=== PATIENT | female | born 1995 | race Caucasian/White ===

== ENCOUNTER 2016-11-30 13:06 | Emergency (ER) | payer OTHER ==
[2016-11-30 13:38] VITALS: BP 140/76
[2016-11-30] MEDS ORDERED: Ibuprofen TAB* 600 MG PO ONE (13:39)
--- NOTE | 2016-11-30 13:50 | UC ---
Throat Pain/Nasal Khai HPI - HPI Summary HPI Summary: sore throat x 4 days , chest congestion , cough , sinus pressure , pnd, fever and chills - History of Current Complaint Chief Complaint: UCRespiratory Stated Complaint: SINUS,COUGH Time Seen by Provider: 11/30/16 13:38 Hx Obtained From: Patient Hx Last Menstrual Period: 11/02/16 Onset/Duration: Gradual Onset, Lasting Days - 4, Still Present Severity: Moderate Cough: Nonproductive Associated Signs & Symptoms: Positive: Sinus Discomfort, Nasal Discharge, Fever. Negative: Rash - Allergies/Home Medications Allergies/Adverse Reactions: Allergies Allergy/AdvReac Type Severity Reaction Status Date / Time No Known Allergies Allergy Verified 11/30/16 13:32 Home Medications: Home Medications Ibuprofen TAB* [Advil TAB*] 400 mg PO Q6H PRN 11/30/16 [History Confirmed ] PMH/Surg Hx/FS Hx/Imm Hx Previously Healthy: Yes - Surgical History Surgical History: None - Family History Known Family History: Negative: Diabetes - Social History Alcohol Use: None Substance Use Type: None Smoking Status (MU): Never Smoked Tobacco - Immunization History Most Recent Influenza Vaccination: 2016 Review of Systems Constitutional: Fever, Chills, Fatigue Skin: Negative Eyes: Negative ENT: Sore Throat, Nasal Discharge Respiratory: Cough Cardiovascular: Negative Gastrointestinal: Negative Genitourinary: Negative All Other Systems Reviewed And Are Negative: Yes Physical Exam Triage Information Reviewed: Yes Appearance: Well-Appearing, No Pain Distress, Well-Nourished Vital Signs: Initial Vital Signs Temp 102.2 F 11/30/16 13:33 Pulse 112 11/30/16 13:33 Resp 16 11/30/16 13:33 BP 140/76 11/30/16 13:33 Pulse Ox 98 11/30/16 13:33 Vital Signs Reviewed: Yes Eyes: Positive: Conjunctiva Clear ENT: Positive: Normal ENT inspection, Hearing grossly normal, Pharyngeal erythema, Nasal congestion, Nasal drainage, TMs normal Neck: Positive: Supple, Nontender, No Lymphadenopathy Respiratory: Positive: Chest non-tender, Lungs clear, Normal breath sounds Cardiovascular: Positive: Tachycardia Throat Pain/Nasal Course/Dx - Differential Dx/Diagnosis Provider Diagnoses: sinusitis. pharyngitis Discharge - Discharge Plan Condition: Stable Disposition: HOME Prescriptions: Amoxicillin/Clavulanate TAB* [Augmentin TAB 875*] 875 mg PO BID #20 tab Patient Education Materials: Pharyngitis (ED), Sinusitis (ED) Referrals: Non Staff,Doctor [Primary Care Provider] - If Needed
== END 2016-11-30 14:14 | disposition home or self-care (01) ==
LOC: UCCORT 13:06
DX: J32.9 Chronic sinusitis, unspecified (principal); J02.9 Acute pharyngitis, unspecified; R00.0 Tachycardia, unspecified
CPT/HCPCS: 87502; 99202; A9270-GY; G0463